=== PATIENT | female | born 1980 | race Two or more races ===

== ENCOUNTER 2019-03-19 10:04 | Emergency (ER) | payer MEDICAID ==
[~2019-03-19] VITALS: Ht 162.6 cm; Wt 70.0 kg
[2019-03-19] MEDS ORDERED: IBUPROFEN 800 MG TABLET PO ONE (12:00)
[2019-03-19] MEDS ORDERED: LIDOCAINE 5% TRANSDERMAL PATCH TD ONE (12:00)
[2019-03-19 13:18] VITALS: BP 111/68
== END 2019-03-19 13:24 | disposition home or self-care (01) ==
LOC: EMS 10:07
DX: M54.5 Low back pain (principal)